=== PATIENT | female | born 1935 | race Caucasian/White ===

== ENCOUNTER 2017-09-05 10:45 | Inpatient (IN) | payer OTHER ==
[~2017-09-05] VITALS: Ht 154.9 cm; Wt 47.6 kg
--- NOTE | ~2017-09-05 | HC ---
[facility] Asmita [place] [address] CONSULTATION Name: JUSTINA GARCIA Room #: 222-P ADM IN M.R.#: [id number] Admission: 09/05/17 Attend Phys: Massimo Cazares MD Discharge: Date of : 35 Report #: [id number] THIS REPORT FOR: //name// CC: Argenis Cazares DATE OF SERVICE: 09/08/2017 ENDOCRINE CONSULTATION LOCATION: [facility], room 222, bed 1. The patient of Dr. Massimo Cazares. SUBJECTIVE: An 82-year-old white female admitted for constipation and hypercalcemia. The patient states that she has known recent hypercalcemia, which has apparently been intermittent. The patient states she was evaluated 20 years ago for hypercalcemia and told what sounds like a possible parathyroid adenoma. At that time, one physician stated she should have surgery and another disagreed and no surgery was performed. Details are not available at this time. The patient also states that she had a father, mother and brother, all of whom suffered from hypercalcemia. There was some sort of genetic workup done at some point approximately 20 years ago, but details are unavailable at this time. There is no information suggesting that any of the 4 patients have had any other endocrine disorders and no evidence of MEN1 or 2 is available. Since admission, the patient has been found to have a mildly elevated calcium and elevated ionized calcium, and an elevated PTH. She is apparently scheduled for a sestamibi scan at some point in the future. Otherwise, she has problem with chronic constipation. She has problem with difficulty with her neck and has had some sort of muscular impairment since Botox injection several years ago. Otherwise, she has a history of hypertension, which has been treated with a variety of medication, one of which may have been a thiazide diuretic, although the patient has not been on a thiazide diuretic for several years to the best of her recollection. CURRENT MEDICATION: Includes amlodipine, propranolol, enoxaparin, famotidine, tramadol and possibly other medication as mentioned. There is no personal or family history of endocrine disease or adenomas. Otherwise, there is no pertinent clinical information available at this time. OBJECTIVE: LABORATORY DATA: Calcium in the recent past has ranged from 9.5 to 10.8, phosphorus 1.9, alkaline phosphatase is normal. Albumin 4.2. TSH normal. Intact PTH 97. Ionized calcium was elevated at 6.1. Vitamin D is in the lower range of normal. [address] [address] CONSULTATION Name: JUSTINA GARCIA Room #: 222-P [facility]#: [id number] Admission: 09/05/17 Attend Phys: Massimo Cazares MD Discharge: Date of : 35 Report #: [id number] PHYSICAL EXAMINATION: GENERAL: Frail, 82-year-old white female, in no acute distress. The patient is alert and oriented x 3. VITAL SIGNS: She is afebrile, heart rate 70 and regular, blood pressure 150/80. DERMATOLOGIC: Skin warm and moist without abnormality. MUSCULOSKELETAL: The patient holds her head somewhat to the right on a consistent basis. Muscular strength is weak throughout. The remainder of the exam is essentially within normal limits. There is some minimal abdominal discomfort. ASSESSMENT: Hypercalcemia with apparent hyperparathyroidism. This is most likely primary hyperparathyroidism. There is no evidence of MEN syndromes, although multiple family members appear to have had hypercalcemia in the past, insufficient clinical information is available on these relatives. There is no evidence to suggest any other etiology for the patient's hypercalcemia. PLAN: 1. Will monitor calcium and ionized calcium. 2. Will await results of sestamibi scan. Meanwhile, will also check parathyroid ultrasound. 3. Since relatives are not available and due to the patient's advanced age and clinical status, there appears no suggestion of need to evaluate further for MEN syndromes unless other family members can be identified with hypercalcemia or other potential associated conditions. Thank you very much for this consultation. I will continue to follow the patient with you for evaluation and management of hypercalcemia. <ELECTRONICALLY SIGNED> By: Darrell Oviedo MD 09/09/17 0938 [id number] Darrell Oviedo MD /nt
[2017-09-05 10:46] VITALS: BP 170/76
[2017-09-05] MEDS ORDERED: PEPCID20 MG PO (11:34)
[2017-09-05] MEDS ORDERED: NORVASC2.5 MG PO (11:35)
[2017-09-05] MEDS ORDERED: PROPRANOLOL 1010 MG PO (11:35)
[2017-09-05] MEDS ORDERED: VITAMIN D2000 UNIT PO (11:36)
[2017-09-05] MEDS ORDERED: [UNRECOGNIZED DRUG - OTHER] PO (11:36)
[2017-09-05] MEDS ORDERED: ZOCOR20 MG PO (11:36)
[2017-09-05] MEDS ORDERED: TRAMADOL 50 MG50 MG PO (11:37)
[2017-09-05] MEDS ORDERED: MIRALAX17 GM PO (11:37)
[2017-09-05] MEDS ORDERED: COLACE100 MG PO (11:38)
[2017-09-05 13:03] LABS: ABSOLUTE NEUTROPHILS 4.4 thou/uL (1.4-8.2); EOSINOPHILS 1.7 % (0.0-3.0); HEMATOCRIT 42.9 % (37.0-47.0); HEMOGLOBIN 14.3 gm/dL (12.0-15.0); LYMPHOCYTES 22.7 % (24.0-44.0); MCH 29.2 pg (26.0-34.0); MCHC 33.2 g/dL (28.0-37.0); MCV 87.8 fL (80.0-100.0); MONOCYTES 9.3 % (1.0-8.0); PLATELET COUNT 229 thou/uL (150-400); POLYS 65.3 % (36.0-66.0); RBC 4.89 mil/uL (4.20-5.00); RDW 14.4 % (10.5-14.5); WBC 6.7 thou/uL (4.0-11.0)
[2017-09-05 13:10] LABS: CREATININE 0.7 mg/dL (0.6-1.0)
[2017-09-05 13:15] LABS: CALCIUM 12.3 mg/dL (8.5-10.1)
[2017-09-05 13:16] LABS: ALBUMIN 4.3 g/dL (3.4-5.0); DIRECT BILIRUBIN 0.1 mg/dL (<0.1-0.3); TOTAL BILIRUBIN 0.4 mg/dL (<0.1-1.0); TOTAL PROTEIN 8.2 g/dL (6.4-8.2)
[2017-09-05 15:58] VITALS: BP 154/52
[2017-09-05 16:37] VITALS: BP 150/58
[2017-09-05 16:42] LABS: ALBUMIN 4.2 g/dL (3.4-5.0); TOTAL PROTEIN 8.4 g/dL (6.4-8.2)
[2017-09-05 16:45] VITALS: BP 161/63
[2017-09-05 17:08] LABS: TSH 0.98 uIU/mL (0.358-3.740)
[2017-09-05 19:22] VITALS: BP 158/62
[2017-09-06 04:00] VITALS: BP 152/57
[2017-09-06 05:54] LABS: HEMATOCRIT 37.3 % (37.0-47.0); MCH 28.8 pg (26.0-34.0); MCHC 32.6 g/dL (28.0-37.0); MCV 88.4 fL (80.0-100.0); RBC 4.21 mil/uL (4.20-5.00); RDW 14.1 % (10.5-14.5); WBC 6.5 thou/uL (4.0-11.0)
[2017-09-06 05:55] LABS: HEMOGLOBIN 12.1 gm/dL (12.0-15.0)
[2017-09-06 06:04] LABS: CALCIUM 9.5 mg/dL (8.5-10.1); CREATININE 0.6 mg/dL (0.6-1.0); MAGNESIUM 2.1 mg/dL (1.8-2.4); POTASSIUM 3.6 mmol/L (3.5-5.1)
[2017-09-06 07:07] VITALS: BP 154/50
[2017-09-06 09:36] LABS: CALCIUM 9.9 mg/dL (8.5-10.1); CREATININE 0.6 mg/dL (0.6-1.0); PHOSPHORUS 1.9 mg/dL (2.5-4.9)
[2017-09-06 16:04] VITALS: BP 155/60
[2017-09-06 17:12] LABS: CALCIUM IONIZED* 6.1 mg/dL (4.5-5.6)
[2017-09-06 20:03] VITALS: BP 167/79
[2017-09-07 08:06] VITALS: BP 176/72
[2017-09-07 09:19] LABS: HEMATOCRIT 39.3 % (37.0-47.0); HEMOGLOBIN 13.1 gm/dL (12.0-15.0); MCH 29.2 pg (26.0-34.0); MCHC 33.4 g/dL (28.0-37.0); MCV 87.6 fL (80.0-100.0); RBC 4.49 mil/uL (4.20-5.00); RDW 14.1 % (10.5-14.5); WBC 6.7 thou/uL (4.0-11.0)
[2017-09-07 09:28] LABS: CALCIUM 10.6 mg/dL (8.5-10.1); CREATININE 0.6 mg/dL (0.6-1.0); POTASSIUM 3.9 mmol/L (3.5-5.1)
[2017-09-07 10:19] VITALS: BP 176/72
[2017-09-07 20:08] VITALS: BP 161/75
[2017-09-08 07:20] VITALS: BP 158/81
[2017-09-08 07:34] LABS: HEMATOCRIT 38.5 % (37.0-47.0); HEMOGLOBIN 12.6 gm/dL (12.0-15.0); MCH 29.1 pg (26.0-34.0); MCHC 32.7 g/dL (28.0-37.0); MCV 88.9 fL (80.0-100.0); RBC 4.33 mil/uL (4.20-5.00); RDW 13.9 % (10.5-14.5); WBC 6.1 thou/uL (4.0-11.0)
[2017-09-08 07:40] LABS: CALCIUM 10.4 mg/dL (8.5-10.1); CREATININE 0.6 mg/dL (0.6-1.0); MAGNESIUM 3.5 mg/dL (1.8-2.4); POTASSIUM 4.1 mmol/L (3.5-5.1)
[2017-09-08 19:55] VITALS: BP 155/79
[2017-09-09 07:30] LABS: HEMATOCRIT 41.7 % (37.0-47.0); HEMOGLOBIN 13.6 gm/dL (12.0-15.0); MCH 28.7 pg (26.0-34.0); MCHC 32.6 g/dL (28.0-37.0); RBC 4.74 mil/uL (4.20-5.00); RDW 14.2 % (10.5-14.5); WBC 6.3 thou/uL (4.0-11.0)
[2017-09-09 07:36] VITALS: BP 168/74
[2017-09-09 07:49] LABS: CALCIUM 11.4 mg/dL (8.5-10.1); CREATININE 0.6 mg/dL (0.6-1.0); MAGNESIUM 2.9 mg/dL (1.8-2.4)
[2017-09-10 04:51] VITALS: BP 140/58
[2017-09-10 14:40] VITALS: BP 142/60
[2017-09-10 21:01] VITALS: BP 169/82
[2017-09-11 08:50] VITALS: BP 172/76
[2017-09-11 09:34] LABS: HEMATOCRIT 35.8 % (37.0-47.0); HEMOGLOBIN 11.9 gm/dL (12.0-15.0); MCH 29.1 pg (26.0-34.0); MCHC 33.2 g/dL (28.0-37.0); MCV 87.7 fL (80.0-100.0); RBC 4.09 mil/uL (4.20-5.00); RDW 14.1 % (10.5-14.5)
[2017-09-11 09:42] LABS: ALBUMIN 3.3 g/dL (3.4-5.0); CALCIUM 10.2 mg/dL (8.5-10.1); CREATININE 0.6 mg/dL (0.6-1.0); MAGNESIUM 2.1 mg/dL (1.8-2.4); POTASSIUM 4.1 mmol/L (3.5-5.1); TOTAL BILIRUBIN 0.3 mg/dL (<0.1-1.0)
[2017-09-11 20:12] VITALS: BP 146/99
[2017-09-12 07:14] LABS: HEMATOCRIT 35.4 % (37.0-47.0); HEMOGLOBIN 11.3 gm/dL (12.0-15.0); MCH 28.5 pg (26.0-34.0); MCHC 32.1 g/dL (28.0-37.0); MCV 88.8 fL (80.0-100.0); RBC 3.98 mil/uL (4.20-5.00); RDW 14.4 % (10.5-14.5); WBC 5.4 thou/uL (4.0-11.0)
[2017-09-12 07:31] LABS: CALCIUM 9.9 mg/dL (8.5-10.1); CREATININE 0.7 mg/dL (0.6-1.0); MAGNESIUM 1.9 mg/dL (1.8-2.4); POTASSIUM 3.4 mmol/L (3.5-5.1)
[2017-09-12 08:09] VITALS: BP 162/86
[2017-09-12 19:45] VITALS: BP 158/54
[2017-09-13 07:30] VITALS: BP 169/82
[2017-09-13 08:17] LABS: HEMATOCRIT 38.6 % (37.0-47.0); HEMOGLOBIN 12.7 gm/dL (12.0-15.0); MCH 28.9 pg (26.0-34.0); MCHC 32.9 g/dL (28.0-37.0); MCV 87.8 fL (80.0-100.0); RBC 4.39 mil/uL (4.20-5.00); WBC 5.3 thou/uL (4.0-11.0)
[2017-09-13 08:27] LABS: CALCIUM 10.8 mg/dL (8.5-10.1); CREATININE 0.7 mg/dL (0.6-1.0); MAGNESIUM 2.1 mg/dL (1.8-2.4); POTASSIUM 3.5 mmol/L (3.5-5.1)
[2017-09-13] MEDS ORDERED: CYCLOBENZAPRINE5 MG PO (15:38)
[2017-09-13] MEDS ORDERED: LACTULOSE20 GM/30 M PO (15:39)
[2017-09-13] MEDS ORDERED: PERCOCET PO (15:39)
[2017-09-13] MEDS ORDERED: SENSIPAR 30 MG30 M1 PO (15:41)
[2017-09-13] MEDS ORDERED: LIDOPATCH1 EACH TRANSDERM (15:42)
[2017-09-13] MEDS ORDERED: B-12500 MCG PO (15:42)
== END 2017-09-13 16:49 | DRG 392 ==
LOC: ER 10:45 → 4N 15:44 → EROBS 15:44 → 4N 16:30 → SICU 09-06 18:27
PROVIDERS: Emergency Medicine; Internal Medicine
DX: K59.00 Constipation, unspecified (principal); E83.52 Hypercalcemia; M40.209 Unspecified kyphosis, site unspecified; M81.0 Age-related osteoporosis without current pathological fracture; K76.9 Liver disease, unspecified; M62.84 Sarcopenia; M50.30 Other cervical disc degeneration, unspecified cervical region; E83.41 Hypermagnesemia; I11.9 Hypertensive heart disease without heart failure; G89.29 Other chronic pain; Z90.710 Acquired absence of both cervix and uterus; Z79.899 Other long term (current) drug therapy; Z88.6 Allergy status to analgesic agent; Z88.1 Allergy status to other antibiotic agents; Z88.8 Allergy status to other drugs, medicaments and biological substances
CPT/HCPCS: 10091; 15000

== ENCOUNTER 2017-09-24 08:32 | Emergency (ER) | payer OTHER ==
[~2017-09-24] VITALS: Ht 152.4 cm; Wt 47.2 kg
--- NOTE | ~2017-09-24 | EKG ---
[address] [address] ELECTROCARDIOGRAM REPORT Name: KRISTIN GARCIABEBELKIS Gonzalez Room #: 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: [facility] : 1935 Requested By: Mustapha Muñiz Order Number: [id number] MD: Romero Daniel Measurements Intervals [place] Rate: 96 P: 70 MN: 158 QRS: 26 QRSD: 89 T: 59 QT: 338 QTc: 428 Interpretive Statements Sinus rhythm No significant abnormality Compared to ECG 07/29/2017 11:33:44 No significant changes Electronically Signed On 09-27-2017 9:03:49 CDT by Romero Daniel [email or web address] <ELECTRONICALLY SIGNED> By: Romero Daniel MD, [facility] 09/27/17 [id number] Romero Daniel MD, FACC /EPI
[~2017-09-24 08:32] MED LIST: B-12500 MCG PO; COLACE100 MG PO; CYCLOBENZAPRINE5 MG PO; LACTULOSE20 GM/30 M PO; LIDOPATCH1 EACH TRANSDERM; MIRALAX17 GM PO; NORVASC2.5 MG PO; PEPCID20 MG PO; PERCOCET PO; PROPRANOLOL 1010 MG PO; SENSIPAR 30 MG30 M1 PO; TRAMADOL 50 MG50 MG PO; VITAMIN D2000 UNIT PO; ZOCOR20 MG PO; [UNRECOGNIZED DRUG - OTHER] PO
[2017-09-24 08:53] LABS: ABSOLUTE NEUTROPHILS 3.6 thou/uL (1.4-8.2); BASOPHILS 0.6 % (0.0-2.0); EOSINOPHILS 1.8 % (0.0-3.0); HEMOGLOBIN 12.4 gm/dL (12.0-15.0); LYMPHOCYTES 31.2 % (24.0-44.0); MCH 29.2 pg (26.0-34.0); MCHC 33.6 g/dL (28.0-37.0); MCV 86.9 fL (80.0-100.0); MONOCYTES 11.9 % (1.0-8.0); PLATELET COUNT 257 thou/uL (150-400); POLYS 54.5 % (36.0-66.0); RBC 4.26 mil/uL (4.20-5.00); WBC 6.6 thou/uL (4.0-11.0)
[2017-09-24 08:59] LABS: ANION GAP 7 mmol/L (7-16); BUN 30 mg/dL (7-18); CALCIUM 10.6 mg/dL (8.5-10.1); CHLORIDE 102 mmol/L (98-107); CO2 27 mmol/L (21-32); CREATININE 0.8 mg/dL (0.6-1.0); GLUCOSE 116 mg/dL (74-106); POTASSIUM 3.9 mmol/L (3.5-5.1); SODIUM 136 mmol/L (136-145)
[2017-09-24 09:08] LABS: ALBUMIN 3.9 g/dL (3.4-5.0); SGOT 15 U/L (15-37); SGPT 28 U/L (30-65); TOTAL BILIRUBIN 0.1 mg/dL (<0.1-1.0); TOTAL PROTEIN 7.7 g/dL (6.4-8.2); TROPONIN-I <0.06 ng/mL (<0.06)
[2017-09-24 09:21] LABS: URINE BILIRUBIN NEGATIVE (Negative); URINE BLOOD NEGATIVE (Negative); URINE CLARITY CLEAR; URINE COLOR YELLOW; URINE GLUCOSE-RANDOM* NEGATIVE (Negative); URINE KETONES NEGATIVE (Negative); URINE LEUKOCYTES-REFLEX NEGATIVE (Negative); URINE NITRITE-REFLEX NEGATIVE (Negative); URINE PROTEIN (DIPSTICK) NEGATIVE (Negative); URINE SPECIFIC GRAVITY 1.025 (1.005-1.035); URINE UROBILINOGEN 0.2 E.U./dl (0.2-1.0)
== END 2017-09-24 10:47 | disposition home or self-care (01) ==
LOC: ER 08:32
PROVIDERS: Emergency Medicine
DX: M54.5 Low back pain (principal); G89.29 Other chronic pain; M54.2 Cervicalgia; I10 Essential (primary) hypertension; Z85.828 Personal history of other malignant neoplasm of skin; Z88.1 Allergy status to other antibiotic agents; Z88.5 Allergy status to narcotic agent; Z88.8 Allergy status to other drugs, medicaments and biological substances

== ENCOUNTER 2018-12-28 13:44 | Emergency (ER) | payer OTHER ==
[~2018-12-28] VITALS: Ht 154.9 cm; Wt 57.1 kg
[2018-12-28 18:48] VITALS: BP 159/71
== END 2018-12-28 19:02 | disposition home or self-care (01) ==
LOC: ER 13:44
DX: H61.21 Impacted cerumen, right ear (principal); I10 Essential (primary) hypertension; Z85.828 Personal history of other malignant neoplasm of skin; Z90.710 Acquired absence of both cervix and uterus; Z88.6 Allergy status to analgesic agent; Z88.1 Allergy status to other antibiotic agents; Z88.8 Allergy status to other drugs, medicaments and biological substances; Z88.5 Allergy status to narcotic agent